=== PATIENT | female | born 1995 | race Caucasian/White ===

== ENCOUNTER 2022-07-03 01:20 | Emergency (ER) | payer OTHER ==
[2022-07-03] MEDS ORDERED: PERCOCET 5-3251 EACH PO (05:19)
[2022-07-03] MEDS ORDERED: NAPROXEN500 MG PO (05:19)
== END 2022-07-03 05:32 | disposition home or self-care (01) ==
LOC: FER 01:20
DX: H18.821 Corneal disorder due to contact lens, right eye (principal)
CPT/HCPCS: 96372; 99283; J1170; J1885